=== PATIENT | male | born 1955 | race American Indian/Alaskan Native ===

== ENCOUNTER 2021-03-18 08:00 | Outpatient (CLI) | payer OTHER | END 2021-03-18 08:30 | disposition home or self-care (01) | LOC: PPH VACUNA 08:00 | DX: Z23 Encounter for immunization (principal) ==

== ENCOUNTER 2022-10-13 09:31 | Outpatient (CLI) | payer OTHER | END 2022-10-13 09:33 | disposition home or self-care (01) | LOC: RAD 09:31 | PROVIDERS: ATTEND Orthopaedic Surgery | DX: M25.522 Pain in left elbow (principal) ==

== ENCOUNTER 2022-10-31 11:39 | Outpatient (CLI) | payer OTHER | END 2022-10-31 11:44 | disposition home or self-care (01) | LOC: RAD 11:39 | PROVIDERS: ATTEND Orthopaedic Surgery | DX: S42.222D 2-part displaced fracture of surgical neck of left humerus, subsequent encounter for fracture with routine healing (principal); Z96.698 Presence of other orthopedic joint implants ==

== ENCOUNTER 2022-11-01 14:20 | Outpatient (CLI) | payer OTHER | END 2022-11-01 14:23 | disposition home or self-care (01) | LOC: RAD 14:20 | PROVIDERS: ATTEND Orthopaedic Surgery | DX: M25.531 Pain in right wrist (principal) ==

== ENCOUNTER 2023-01-16 10:38 | Outpatient (CLI) | payer OTHER | END 2023-01-16 10:42 | disposition home or self-care (01) | LOC: RAD 10:38 | PROVIDERS: ATTEND Orthopaedic Surgery | DX: S52.122D Displaced fracture of head of left radius, subsequent encounter for closed fracture with routine healing (principal); S42.222D 2-part displaced fracture of surgical neck of left humerus, subsequent encounter for fracture with routine healing ==